=== PATIENT | male | born 1945 | race Caucasian/White ===

== ENCOUNTER 2018-11-24 11:53 | Emergency (ER) | payer BC, OTHER ==
[~2018-11-24] VITALS: Ht 165.1 cm; Wt 93.0 kg
[~2018-11-24 11:53] MED LIST: DOCU-138 PO; FISH1200 PO; LOV40 SQ; OXYC10TA48 PO; TAMS0.4C31 PO
[2018-11-24] MEDS ORDERED: SODIUM CHLORIDE 0.9% 1,000 ML IV ONE (12:13)
[2018-11-24 12:52] LABS: BASOPHILS % 1.2 % (0.0-2.0); EOSINOPHILS % 4.4 % (0.0-5.0); HEMATOCRIT. 42.1 % (42.0-52.0); HEMOGLOBIN. 14.4 g/dL (14.0-18.0); LYMPHOCYTES % 29.2 % (20.0-50.0); MEAN CORPUSCULAR VOLUME 90.7 fL (80.0-94.0); MEAN PLATELET VOLUME 8.8 fl (7.4-10.4); MONOCYTES % 9.2 % (2.0-8.0); PLATELET 226 x1000/uL (130-400); RED BLOOD CELL COUNT 4.65 mill/uL (4.7-6.1); RED CELL DISTRIBUTION WIDTH 14.5 % (11.6-14.6)
[2018-11-24 12:56] LABS: CHLORIDE 108 mEq/L (98-107)
[2018-11-24 12:57] LABS: CLARITY URINE CLEAR (CLEAR); COLOR URINE YELLOW (YELLOW); KETONES URINE NEGATIVE (NEGATIVE); LEUKOCYTE ESTERASE URINE NEGATIVE (NEGATIVE); NITRITE URINE NEGATIVE (NEGATIVE); OCCULT BLOOD URINE NEGATIVE (NEGATIVE); PH URINE 7.5 (4.5-8.0); PROTEIN URINE NEGATIVE (NEGATIVE); SPECIFIC GRAVITY URINE 1.018 (1.005-1.030); UROBILINOGEN URINE 0.2 E.U./dL (0.2-1.0)
[2018-11-24 15:31] VITALS: BP 127/64
== END 2018-11-24 17:30 | disposition short-term general hospital (02) ==
LOC: ER 11:53
DX: G90.8 Other disorders of autonomic nervous system (principal)
CPT/HCPCS: 36415; 70450; 71045; 80053; 81003; 85025; 93005; 99285; J7030

== ENCOUNTER 2022-01-18 08:36 | Emergency (ER) | payer BC, MEDICAID ==
[~2022-01-18] VITALS: Ht 175.3 cm; Wt 91.0 kg
[~2022-01-18 08:36] MED LIST changes: +ENOX40SY27 SQ; -LOV40 SQ
[2022-01-18 10:35] LABS: BASOPHILS % 0.8 % (0.0-2.0); EOSINOPHILS % 4.4 % (0.0-5.0); HEMATOCRIT. 48.4 % (42.0-52.0); HEMOGLOBIN. 16.5 g/dL (14.0-18.0); LYMPHOCYTES % 39.8 % (20.0-50.0); MEAN CORPUSCULAR HEMOGLOBIN 30.7 pg (28.0-32.0); MEAN CORPUSCULAR VOLUME 90.1 fL (80.0-94.0); MONOCYTES % 9.7 % (2.0-8.0); NEUTROPHILS % 45.3 % (40.0-76.0); RED BLOOD CELL COUNT 5.38 mill/uL (4.7-6.1); RED CELL DISTRIBUTION WIDTH 14.1 % (11.6-14.6)
[2022-01-18 10:37] LABS: CHLORIDE 104 mEq/L (98-107)
[2022-01-18] MEDS ORDERED: IOHEXOL-350 100 ML BOTTLE ONE (13:32)
[2022-01-18] MEDS ORDERED: ACETAMINOPHEN 325MG TABLET PO ONE (18:45)
[2022-01-18 23:20] VITALS: BP 143/83
== END 2022-01-18 23:30 | disposition short-term general hospital (02) ==
LOC: ER 08:36
DX: I63.9 Cerebral infarction, unspecified (principal); I10 Essential (primary) hypertension; R42 Dizziness and giddiness; E78.00 Pure hypercholesterolemia, unspecified; Z20.822 Contact with and (suspected) exposure to COVID-19; Z90.49 Acquired absence of other specified parts of digestive tract; Z98.890 Other specified postprocedural states
CPT/HCPCS: 36415; 70450; 70496; 70498; 71275; 80053; 83880; 84484; 85025; 87426; 93005; 99285; C9803; Q9967